=== PATIENT | female | born 1990 | race Caucasian/White ===

== ENCOUNTER 2019-03-05 11:52 | Emergency (ER) | payer OTHER ==
[2019-03-05 12:07] VITALS: RESP 18
[2019-03-05] MEDS ORDERED: SODIUM CHLORIDE 0.9% 1,000 ML IV STA ×2 (12:21)
[2019-03-05] MEDS ORDERED: diphenhydrAMINE 50 MG/ML 1 ML VIAL IVP STA (12:21)
[2019-03-05] MEDS ORDERED: ACETAMINOPHEN TAB 500 MG TAB PO STA (12:21)
[2019-03-05] MEDS ORDERED: SODIUM CHLORIDE 0.9% 500 ML 500 ML IV STA (12:21)
[2019-03-05] MEDS ORDERED: METOCLOPRAMIDE 5 MG/ML 2 ML VIAL IVP STA (12:21)
--- NOTE | 2019-03-05 12:23 | ED ---
Headache HPI - General Chief Complaint: Headache Stated Complaint: rt eye vision loss, headache Time Seen by Provider: 03/05/19 12:06 Source: RN notes reviewed, old records reviewed Mode of arrival: ambulatory Limitations: no limitations - History of Present Illness Initial Comments: This is a 21-year-old female the ER for evaluation. She presents today for evaluation regards to headache history of migraine migraine headache times one week. Patient is (about 10 weeks currently. She is nauseous with decreased appetite but no active vomiting. Denies any other complaints no fevers. Headache has persisted for about a week she has seen his spoke with her OB with no recommended continued treatment just increasing IV fluids and Tyle nol. Patient also currently complaining of some right sided eye twitching and occasional blurry vision which she occasionally gets with severe migraines. MD Complaint: headache, "migraine" (Patient also known to be ) -: week(s) Onset Description: gradual Location: right, left, frontal Severity: moderate Severity scale (1-10): 6 Quality: aching, throbbing, pulsatile, similar to previous headaches Consistency: constant Improves With: nothing Worsens With: none Associated Symptoms: nausea, photophobia, vision loss (No vision loss but she does have blurry vision right eye) Treatments Prior to Arrival: Acetaminophen - Related Data Home Medications Medication Instructions Recorded Confirmed Acetaminophen Tab [Tylenol Tab] 650 mg PO Q4H PRN 03/05/19 03/05/19 Pnv,Calcium 72/Iron/Folic Acid 1 tab PO DAILY 03/05/19 03/05/19 [ Plus Tablet] Allergies Allergy/AdvReac Type Severity Reaction Status Date / Time No Known Allergies Allergy Verified 03/05/19 12:41 Review of Systems ROS Statement: Those systems with pertinent positive or pertinent negative responses have been documented in the HPI. ROS Other: All systems not noted in ROS Statement are negative. Past Medical History Past Medical History: No Reported History History of Any Multi-Drug Resistant Organisms: None Reported Past Surgical History: No Surgical Hx Reported Past Psychological History: No Psychological Hx Reported Smoking Status: Never smoker Past Alcohol Use History: None Reported Past Drug Use History: None Reported General Exam - General Exam Comments Initial Comments: NIH is 0 No vision loss Loss noted on exam Limitations: no limitations General appearance: alert, in no apparent distress Head exam: Present: atraumatic, normocephalic, normal inspection Eye exam: Present: normal appearance, PERRL, EOMI. Absent: scleral icterus, conjunctival injection, nystagmus, periorbital swelling, periorbital tenderness Pupils: Present: normal accommodation. Absent: irregular, unequal, miosis, mydriatic ENT exam: Present: normal exam, mucous membranes moist Neck exam: Present: normal inspection. Absent: tenderness, meningismus, lymphadenopathy Respiratory exam: Present: normal lung sounds bilaterally. Absent: respiratory distress, wheezes, rales, rhonchi, stridor Cardiovascular Exam: Present: regular rate, normal rhythm, normal heart sounds. Absent: systolic murmur, diastolic murmur, rubs, gallop, clicks GI/Abdominal exam: Present: soft, normal bowel sounds. Absent: distended, tenderness, guarding, rebound, rigid Extremities exam: Present: normal inspection, full ROM, normal capillary refill. Absent: tenderness, pedal edema, joint swelling, calf tenderness Back exam: Present: normal inspection Neurological exam: Present: alert, oriented X3, CN II-XII intact Psychiatric exam: Present: normal affect, normal mood Skin exam: Present: warm, dry, intact, normal color. Absent: rash Course Vital Signs 03/05/19 12:05 Temperature 98.2 F Pulse Rate 91 Respiratory 18 Rate Blood Pressure 145/83 O2 Sat by Pulse 97 Oximetry - Reevaluation(s) Reevaluation #1: 03/05/19 13:56 Medical record reviewed Reevaluation #2: 03/05/19 13:56 Symptoms improved Reevaluation #3: 03/05/19 13:56 Patient's headache is improving patient is improving, blurry vision is improving Medical Decision Making - Medical Decision Making 29 female the ER with migraine headache. Patient resents today the ER with same. Headache times one week. Patient also having some twitching of right eye blurry vision that is improving, headache is improving here in the ER. Lab values are unremarkable for mild dehydration. Urine is negative. Patient can be discharged - Lab Data Result diagrams: 03/05/19 13:16 03/05/19 13:16 Lab Results 03/05/19 03/05/19 03/05/19 Range/Units 13:16 13:16 13:16 WBC 11.3 H (3.8-10.6) k/uL RBC 4.58 (3.80-5.40) m/uL Hgb 13.6 (11.4-16.0) gm/dL Hct 40.8 (34.0-46.0) % MCV 88.9 (80.0-100.0) fL MCH 29.8 (25.0-35.0) pg MCHC 33.5 (31.0-37.0) g/dL RDW 14.2 (11.5-15.5) % Plt Count 289 (150-450) k/uL Neutrophils % 73 % Lymphocytes % 23 % Monocytes % 3 % Eosinophils % 0 % Basophils % 0 % Neutrophils # 8.2 H (1.3-7.7) k/uL Lymphocytes # 2.6 (1.0-4.8) k/uL Monocytes # 0.4 (0-1.0) k/uL Eosinophils # 0.0 (0-0.7) k/uL Basophils # 0.0 (0-0.2) k/uL Sodium 136 L (137-145) mmol/L Potassium 3.9 (3.5-5.1) mmol/L Chloride 104 (98-107) mmol/L Carbon Dioxide 21 L (22-30) mmol/L Anion Gap 11 mmol/L BUN 7 (7-17) mg/dL Creatinine 0.40 L (0.52-1.04) mg/dL Est GFR (CKD-EPI)AfAm >90 (>60 ml/min/1.73 sqM) Est GFR (CKD-EPI)NonAf >90 (>60 ml/min/1.73 sqM) Glucose 87 (74-99) mg/dL Calcium 9.4 (8.4-10.2) mg/dL Phosphorus 3.4 (2.5-4.5) mg/dL Magnesium 2.1 (1.6-2.3) mg/dL Total Bilirubin 0.4 (0.2-1.3) mg/dL AST 16 (14-36) U/L ALT 18 (9-52) U/L Alkaline Phosphatase 49 (38-126) U/L Total Protein 7.0 (6.3-8.2) g/dL Albumin 4.2 (3.5-5.0) g/dL Urine Color Yellow Urine Appearance Clear (Clear) Urine pH 7.0 (5.0-8.0) Ur Specific [place] 1.012 (1.001-1.035) Urine Protein Negative (Negative) Urine Glucose (UA) Negative (Negative) Urine Blood Trace H (Negative) Urine Nitrite Negative (Negative) Urine Bilirubin Negative (Negative) Urine Urobilinogen <2.0 (<2.0) mg/dL Ur Leukocyte Esterase Large H (Negative) Urine RBC 2 (0-5) /hpf Urine WBC 2 (0-5) /hpf Ur Squamous Epith Cells 2 (0-4) /hpf Urine Bacteria Rare H (None) /hpf Urine Mucus Rare H (None) /hpf Disposition Clinical Impression: Migraine, Headache, Disposition: HOME SELF-CARE Condition: Good Instructions (If sedation given, give patient instructions): Acute Headache (ED) Is patient prescribed a controlled substance at d/c from ED?: No Referrals: None,Stated [Primary Care Provider] - 1-2 days
[2019-03-05 13:44] LABS: Basophils % (A) 0 %; Eosinophils % (A) 0 %; HCT 40.8 % (34.0-46.0); HGB 13.6 gm/dL (11.4-16.0); Lymphocytes # (A) 2.6 k/uL (1.0-4.8); Lymphocytes % (A) 23 %; MCH 29.8 pg (25.0-35.0); MCHC 33.5 g/dL (31.0-37.0); MCV 88.9 fL (80.0-100.0); Mean Platelet Volume 6.9; Monocytes # (A) 0.4 k/uL (0-1.0); Monocytes % (A) 3 %; Neutrophils # (A) 8.2 k/uL (1.3-7.7); Neutrophils % (A) 73 %; Platelet Count 289 k/uL (150-450); RBC 4.58 m/uL (3.80-5.40); RDW 14.2 % (11.5-15.5); WBC 11.3 k/uL (3.8-10.6)
[2019-03-05 13:52] LABS: ALT 18 U/L (9-52); AST 16 U/L (14-36); African American GFR (CKD) >90 (>60 ml/min/1.73 sqM); Albumin 4.2 g/dL (3.5-5.0); Alkaline Phosphatase 49 U/L (38-126); Anion Gap 11 mmol/L; Blood Urea Nitrogen 7 mg/dL (7-17); Calcium 9.4 mg/dL (8.4-10.2); Carbon Dioxide 21 mmol/L (22-30); Chloride 104 mmol/L (98-107); Glucose 87 mg/dL (74-99); Magnesium 2.1 mg/dL (1.6-2.3); Phosphorus 3.4 mg/dL (2.5-4.5); Potassium 3.9 mmol/L (3.5-5.1); Sodium 136 mmol/L (137-145); Total Bilirubin 0.4 mg/dL (0.2-1.3)
[2019-03-05 13:53] LABS: Appearance,Urine Clear (Clear); Bacteria,Urine Rare /hpf; Bilirubin,Urine Negative (Negative); Blood,Urine Trace (Negative); Color,Urine Yellow; Glucose,Urine (UA) Negative (Negative); Ketones,Urine 2+ (Negative); Leukocyte Esterase,Urine Large (Negative); Mucus,Urine Rare /hpf; Nitrite,Urine Negative (Negative); Protein,Urine Negative (Negative); RBC,Urine 2 /hpf (0-5); Specific Gravity,Urine 1.012 (1.001-1.035); Squamous Epithelial Cell,Urine 2 /hpf (0-4); Urobilinogen,Urine <2.0 mg/dL (<2.0); WBC,Urine 2 /hpf (0-5)
[2019-03-05 14:23] VITALS: BP 115/59; PULSE 71; TEMP 97.9
== END 2019-03-05 14:23 | disposition home or self-care (01) ==
LOC: EC 11:52
DX: O99.89 Other specified diseases and conditions complicating pregnancy, childbirth and the puerperium (principal); G43.909 Migraine, unspecified, not intractable, without status migrainosus; H57.89 Other specified disorders of eye and adnexa; Z79.899 Other long term (current) drug therapy; Z3A.10 10 weeks gestation of pregnancy
CPT/HCPCS: 36415; 80053; 83735; 84100; 85025; 81001; 87086; 99284; 96365; 96375 ×2; J1200; J2765; J2930

== ENCOUNTER 2019-07-15 14:35 | Outpatient (CLI) | payer OTHER ==
[2019-07-15 15:59] VITALS: BP 120/71; PULSE 96; RESP 18; TEMP 97.8
--- NOTE | 2019-07-16 07:41 | P.MSEPDOC ---
Presenting Problems - Arrival Data Date of Arrival on Unit: 07/15/19 Time of Arrival on Unit: 14:35 Mode of Transport: Ambulatory - Complaint OB-Reason for Admission/Chief Complaint: Rule Out SROM Medical History - Information : 2 Para: 1 Term: 1 : 0 Abortions: Spontaneous or Elective: 0 Number of Living Children: 1 - Gestational Age Gestational Age by ZULAY (wks/days): 29 Weeks and 1 Days Review of Systems - Review of Systems Constitutional: No problems Breast: No problems ENT: No problems Cardiovascular: No problems Respiratory: No problems Gastrointestinal: No problems Genitourinary: No problems Musculoskeletal: No problems Neurological: No problems Skin: No problems Vital Signs - Temperature Temperature: 97.8 F Temperature Source: Oral - Pulse Right Sitting Brachial Pulse Rate: 96 Pulse Assessment Method: Automatic Cuff - Respirations Respiratory Rate: 18 Oxygen Delivery Method: Room Air O2 Sat by Pulse Oximetry: 100 - Blood Pressure Right Arm Sitting Blood Pressure: 120/71 Blood Pressure Mean: 87 Blood Pressure Source: Automatic Cuff Medical Screen Scoring (Pre) - Cervical Exam Dilation: 0 cm = 0 Membranes: Intact - Uterine Contractions Frequency: N/A Duration: N/A Intensity: N/A - Maternal Vital Signs Maternal Temperature: N/A Maternal Blood Pressure: N/A Signs of Preeclampsia: N/A Maternal Respirations: N/A - Maternal Trauma Maternal Trauma: N/A - Assessment - Baby A Baseline FHR: 135 Heart Rate - NICHD Category: Category I (Normal) = 0 NST: Reactive Position: N/A Station: N/A - Total Score - Baby A Total Score - Baby A: 0 - Total Score - Baby B Total Score - Baby B: 0 - Total Score - Baby C Total Score - Baby C: 0 - Level of Risk - Baby A Level of Risk - Baby A: Low (0-5) - Level of Risk - Baby B Level of Risk - Baby B: Low (0-5) - Level of Risk - Baby C Level of Risk - Baby C: Low (0-5) - Pain Assessment Pain Scale Used: Numeric (1 - 10) Pain Intensity: 0 Pain Management Goal: 3 Physician Notification (Pre) - Physician Notified Physician Notified Date: 07/15/19 Physician Notified Time: 15:45 New Order Received: Yes - Notification Comment Comment: amnisure neg. cx closed/thick. dc home. follow up in the office 07/22/2019 Disposition - Disposition OB Disposition: Physician follow up in office, Discharge to home Discharge Date: 07/15/19 Discharge Time: 15:59 I agree with the RN Medical Screening Exam: Yes Risk & Benefit of care provided described in d/c instruction: Yes Diagnosis: FALSE LABOR BEFORE 37 COMPLETED WEEKS OF GEST, THIRD TRI
== END 2019-07-15 16:00 | disposition home or self-care (01) ==
LOC: FBPOP 14:35
PROVIDERS: ATTEND Obstetrics & Gynecology
DX: O47.03 False labor before 37 completed weeks of gestation, third trimester (principal); Z3A.29 29 weeks gestation of pregnancy
CPT/HCPCS: 59025; 84112; 99213

== ENCOUNTER 2019-09-17 22:18 | Inpatient (IN) | payer OTHER ==
[2019-09-17] MEDS ORDERED: TERBUTALINE 1 MG/ML VIAL SQ PRN (22:43)
[2019-09-17] MEDS ORDERED: LIDOCAINE 0.5% (PF) 5 MG/ML (50 ML SDV) SQ PRN (22:43)
[2019-09-17] MEDS ORDERED: OXYTOCIN 10 UNIT/ML 1 ML VIAL IM PRN (22:43)
[2019-09-17] MEDS ORDERED: METHYLERGONOVINE 0.2 MG/ML 1 ML AMP IM PRN (22:43)
[2019-09-17] MEDS ORDERED: CARBOPROST TROMETHAMINE 250 MCG/ML 1 ML AMP IM PRN (22:43)
[2019-09-17] MEDS ORDERED: LACTATED RINGERS 1,000 ML IV SCH (22:45)
[2019-09-17 23:00] LABS: Basophils % (A) 0 %; Eosinophils # (A) 0.1 k/uL (0-0.7); Eosinophils % (A) 1 %; HGB 12.7 gm/dL (11.4-16.0); Lymphocytes # (A) 3.4 k/uL (1.0-4.8); Lymphocytes % (A) 31 %; MCH 26.8 pg (25.0-35.0); MCHC 32.6 g/dL (31.0-37.0); MCV 82.1 fL (80.0-100.0); Mean Platelet Volume 7.7; Monocytes # (A) 0.7 k/uL (0-1.0); Monocytes % (A) 6 %; Neutrophils # (A) 6.4 k/uL (1.3-7.7); Neutrophils % (A) 59 %; Platelet Count 254 k/uL (150-450); RBC 4.75 m/uL (3.80-5.40); RDW 15.1 % (11.5-15.5); WBC 10.8 k/uL (3.8-10.6)
--- NOTE | 2019-09-17 23:44 | P.HPOB ---
History of Present Illness H&P Date: 09/17/19 Chief Complaint: Strong regular uterine contractions This is a 29-year-old white female 2 para 1001 EDC 09/29/2019 38-2/7 weeks' gestation. Patient presented with strong regular uterine contractions from home, judged to be in active spontaneous labor. Fetus is been active throughout the . She denies fluid leakage or vaginal bleeding. history significant for blood type A positive, rubella status immune. Group B strep cultures, VDRL testing, HIV testing, hepatitis B surface antigen, urine culture all negative. One-hour Glucola elevated, 3 hour GTT within normal limits. Past medical history is significant for migraine headaches, improved with chiropractic adjustments. Past surgical history wisdom teeth extracted. Current medications vitamin daily. Magnesium 200 mg orally daily. ALLERGIES none known. Family history significant for diabetes. Obstetric history vaginal delivery in 2016 of male infant, 6 lbs. 7 oz. On exam patient is 5 foot 4 inches, approximate 225 pounds, blood pressure 128/75 on admission, vital signs otherwise stable. The general physical exam is within normal limits. Cervix on admission is 7 cm dilated, 90% effaced, -2 station, vertex presentation. heart rate is consistent with reactive NST. Impression: 38-2/7 weeks intrauterine , active spontaneous labor, all signs reassuring. Plan: Patient is requesting epidural but we are awaiting lab results. Stadol has been offered intravenously. Continue close maternal and surveillance. Anticipate normal spontaneous vaginal delivery. Review of Systems Constitutional: Reports as per HPI Past Medical History Past Medical History: No Reported History History of Any Multi-Drug Resistant Organisms: None Reported Past Surgical History: No Surgical Hx Reported Past Anesthesia/Blood Transfusion Reactions: No Reported Reaction Past Psychological History: No Psychological Hx Reported Smoking Status: Never smoker Past Alcohol Use History: None Reported Past Drug Use History: None Reported - Past Family History Father Family Medical History: No Reported History Medications and Allergies Home Medications Medication Instructions Recorded Confirmed Type Pnv,Calcium 72/Iron/Folic Acid 1 tab PO DAILY 03/05/19 09/17/19 History [ Plus Tablet] Acetaminophen Tab [Tylenol] 650 mg PO Q4H 09/17/19 09/17/19 History Allergies Allergy/AdvReac Type Severity Reaction Status Date / Time No Known Allergies Allergy Verified 03/12/20 22:22 Exam Vital Signs Temp Pulse Resp BP Pulse Ox 09/17/19 22:51 97.6 F 78 20 128/75 97 Intake and Output 09/17/19 09/17/19 09/18/19 14:59 22:59 06:59 Other: Weight 102.058 kg See dictation HPI please Results Result Diagrams: 09/17/19 22:46 Abnormal Lab Results - Last 24 Hours (Table) 09/17/19 Range/Units 22:46 WBC 10.8 H (3.8-10.6) k/uL Assessment and Plan Assessment: 38-2/7 weeks intrauterine , active spontaneous labor. Plan: Continue close maternal and surveillance. Anticipate normal spontaneous vaginal delivery. Time with Patient: Less than 30
[2019-09-17] MEDS ORDERED: OXYTOCIN 20 UNITS/1000 ML NS 1,000 ML IV SCH (23:45)
[2019-09-17] MEDS ORDERED: BENZOCAINE/MENTHOL SPRAY 1 GM/SPRAY AEROSOL TOPICAL PRN (23:47)
[2019-09-17] MEDS ORDERED: diphenhydrAMINE 50 MG CAP PO PRN (23:47)
[2019-09-17] MEDS ORDERED: HYDROCORTISONE 2.5% RECTAL CREAM 30 GM TUBE RECTAL PRN (23:47)
[2019-09-17] MEDS ORDERED: diphenhydrAMINE 50 MG/ML 1 ML VIAL IVP PRN ×2 (23:47)
[2019-09-17] MEDS ORDERED: ZOLPIDEM 5 MG TAB PO PRN (23:47)
[2019-09-17] MEDS ORDERED: LANOLIN CREAM 5 GM TUBE TOPICAL PRN (23:47)
[2019-09-17] MEDS ORDERED: WITCH HAZEL 1 EACH MED..PAD TOPICAL PRN (23:47)
[2019-09-17] MEDS ORDERED: diphenhydrAMINE ELIXIR 25 MG/10 ML CUP PO PRN (23:47)
[2019-09-17] MEDS ORDERED: diphenhydrAMINE 25 MG CAP PO PRN (23:47)
[2019-09-17] MEDS ORDERED: ACETAMINOPHEN TAB 325 MG TAB PO PRN (23:47)
[2019-09-17] MEDS ORDERED: SIMETHICONE 80 MG CHEWABLE PO PRN (23:47)
--- NOTE | 2019-09-17 23:47 | P.PROBDLV ---
Vaginal Delivery Note - . Vaginal Delivery Note: This is a 29-year-old white female 2 para 1001 EDC 09/29/2019 at 38-2/7 weeks' gestation. Patient presented in active spontaneous labor, cervix was 7 cm dilated on admission. Group B strep cultures negative, blood type A positive, rubella status immune. Please see dictated history and physical for details. heart rate was reassuring. Artificial amniorrhexis revealed clear fluid. Patient very quickly became completely dilated and began the second stage of labor at that time. Perineal body was prepped and draped in usual sterile fashion. With excellent maternal expulsive efforts the head delivered occiput anterior and the baby restituted accordingly. There was no nuchal cord noted. The left or anterior shoulder was easily delivered from underneath the pubic symphysis at which time the oropharynx, nasopharynx, and external nares were bulb suctioned on the perineal body. Patient was officially delivered of a liveborn female infant at 2321 hours. Umbilical cord was doubly clamped and ligated, she was handed to waiting nurses for evaluation where scores of 9 and 10 at one and 5 minutes respectively were given. Placenta delivered spontaneously, it was inspected and noted to be intact with trivascular cord at 2324 hrs. Uterus is massaged. Inspection of the cervix, vagina, perineum, periurethral, and perirectal areas revealed a very small first-degree midline perineal laceration repaired with a single [id number] suture of PE didn't. All sponge needle and enhancement counts are correct at the end of the procedure. Estimated blood loss 250 mL's. Patient and her family are allowed to begin the bonding experience in the LDR.
[2019-09-18] MEDS: IBUPROFEN 600 MG TAB PO PRN ×3 (00:17→16:38)
[2019-09-18] MEDS: SENNOSIDES-DOCUSATE SODIUM 1 EACH TAB PO SCH ×2 (07:34→19:48)
--- NOTE | 2019-09-18 11:25 | P.PN ---
Subjective Progress Note Date: 09/18/19 Principal diagnosis: day #1 Slept well, minimal lochia rubra, no pain, no complaints. Objective - Vital Signs Vital signs: Vital Signs Temp 97.8 F 09/18/19 07:44 Pulse 65 09/18/19 07:44 Resp 18 09/18/19 07:44 BP 96/54 09/18/19 07:44 Pulse Ox 98 09/18/19 07:44 Intake & Output 09/17/19 09/18/19 09/18/19 18:59 06:59 18:59 Output Total 250 Balance -250 Weight 102.058 kg Output: Estimated Blood Loss 250 Other: # Voids 1 1 # Bowel Movements 0 - Constitutional General appearance: Present: average body habitus, cooperative - EENT Eyes: Present: PERRLA ENT: Present: hearing grossly normal - Respiratory Respiratory: bilateral: CTA - Cardiovascular Rhythm: regular - Gastrointestinal Gastrointestinal Comment(s): Fundus firm, midline, symmetric, 18 week size. - Integumentary Integumentary: Present: normal turgor - Neurologic Neurologic: Present: CNII-XII intact - Musculoskeletal Musculoskeletal: Present: gait normal, strength equal bilaterally - Psychiatric Psychiatric: Present: A&O x's 3, appropriate affect, intact judgment & insight - Labs CBC & Chem 7: 09/17/19 22:46 Labs: Abnormal Lab Results - Last 24 Hours (Table) 09/17/19 Range/Units 22:46 WBC 10.8 H (3.8-10.6) k/uL Assessment and Plan Assessment: Doing very well day #1 Plan: Likely discharge home tomorrow. Continue care. Patient will follow- up with me in 6 weeks. Time with Patient: Less than 30
[2019-09-19 00:38] VITALS: RESP 18
[2019-09-19] MEDS: IBUPROFEN 600 MG TAB PO PRN (08:18)
[2019-09-19] MEDS: SENNOSIDES-DOCUSATE SODIUM 1 EACH TAB PO SCH (08:19)
[2019-09-19 09:45] VITALS: BP 124/84; PULSE 66; TEMP 97.8
--- NOTE | 2019-09-19 09:48 | P.DS ---
Providers Date of admission: 09/17/19 22:38 Expected date of discharge: 09/19/19 Attending physician: Natividad Barnett Primary care physician: Stated None - Discharge Diagnosis(es) (1) Term Current Visit: Yes Status: Acute (2) Spontaneous onset of labor Current Visit: Yes Status: Acute (3) Small for gestational age (SGA) Current Visit: Yes Status: Acute (4) Normal spontaneous vaginal delivery Current Visit: Yes Status: Acute (5) Perineal laceration with delivery, first degree Current Visit: Yes Status: Acute Hospital Course: This is a 29-year-old 2 now para 2 woman who presented at 38-2/7 weeks' gestation in advanced active labor. She was a admitted and underwent artificial rupture of membranes. She had a rapid progression to complete cervical dilation. She delivered a liveborn female over a first-degree perineal laceration. Apgars 9 at 1 minute and 10 at 5 minutes. Please see the delivery summary for details. Her course was unremarkable. On day #1 she was ambulating and voiding without difficulty, tolerating a general diet and her lochia was decreasing. By day #2 she continued to do quite well with minimal lochia, no perineal or abdominal pain. Her vital signs are stable. She was therefore discharged home with routine instructions for care and follow-up Patient Condition at Discharge: Good Plan - Discharge Summary New Discharge Prescriptions: No Action Pnv,Calcium 72/Iron/Folic Acid [ Plus Tablet] 1 tab PO DAILY Acetaminophen Tab [Tylenol] 650 mg PO Q4H Discharge Medication List Pnv,Calcium 72/Iron/Folic Acid [ Plus Tablet] 1 tab PO DAILY 03/05/19 [History] Acetaminophen Tab [Tylenol] 650 mg PO Q4H 09/17/19 [History] Follow up Appointment(s)/Referral(s): Natividad Barnett MD [STAFF PHYSICIAN] - 6 Weeks Activity/Diet/Wound Care/Special Instructions: Follow-up in the office in 6 weeks . Call with any concerning signs or symptoms including heavy vaginal bleeding, severe abdominal pain, fever greater than 101, swelling or redness of the lower extremities, foul vaginal discharge, or signs of depression. Nothing in the vagina for 6 weeks after delivery, specifically no intercourse. Discharge Disposition: HOME SELF-CARE
== END 2019-09-19 12:17 | disposition home or self-care (01) | DRG 807 ==
LOC: FBPOP 22:18 → 4FBP 22:38
PROVIDERS: ADMIT Obstetrics & Gynecology; ATTEND Obstetrics & Gynecology
PROC: 10907ZC Drainage of Amniotic Fluid, Therapeutic from Products of Conception, Via Natural or Artificial Opening (ICD-10-PCS; principal; 2019-09-17)
PROC: 10E0XZZ Delivery of Products of Conception, External Approach (ICD-10-PCS; principal; 2019-09-17)
PROC: 0HQ9XZZ Repair Perineum Skin, External Approach (ICD-10-PCS; principal; 2019-09-17)
DX: O36.5930 Maternal care for other known or suspected poor fetal growth, third trimester, not applicable or unspecified (principal); Z37.0 Single live birth; O70.0 First degree perineal laceration during delivery; Z3A.38 38 weeks gestation of pregnancy; Z83.3 Family history of diabetes mellitus
CPT/HCPCS: 85025; 86850; 86900; 86901; 99213

== ENCOUNTER → 2024-09-23 | Outpatient (CLI) | payer BC ==
[2024-09-23 15:55] LABS: Basophils # (A) 0.08 X 10*3/uL (0.00-0.10); Basophils % (A) 1.2 %; Eosinophils # (A) 0.03 X 10*3/uL (0.04-0.35); Eosinophils % (A) 0.5 %; HCT 40.2 % (37.2-46.3); HGB 13.1 g/dL (12.0-15.0); Lymphocytes # (A) 2.77 X 10*3/uL (0.90-5.00); Lymphocytes % (A) 42.4 %; MCH 28.2 pg (27.0-32.0); MCHC 32.6 g/dL (32.0-37.0); MCV 86.5 FL (80.0-97.0); Mean Platelet Volume 10.3 FL (9.5-12.2); Monocytes # (A) 0.53 X 10*3/uL (0.20-1.00); Monocytes % (A) 8.1 %; NRBC Per 100 WBC 0 X 10*3/uL (0.00-0.01); Neutrophils # (A) 3.11 X 10*3/uL (1.80-7.70); Neutrophils % (A) 47.6 %; Platelet Count 323 X 10*3/uL (140-440); RBC 4.65 X 10*6/uL (4.10-5.20); RDW 13.9 % (11.5-14.5); WBC 6.53 X 10*3/uL (4.50-10.00)
[2024-09-23 16:11] LABS: Chol/HDL Ratio 3.21 Ratio; LDL Cholesterol,Calculated 114.5 mg/dL (0.0-131.0); VLDL Calculation 9.42 mg/dL (5.00-40.00)
[2024-09-23 16:12] LABS: ALT 21 U/L (8-44); AST 18 U/L (13-35); Albumin 4.8 g/dL (3.8-4.9); Alkaline Phosphatase 70 U/L (41-126); BUN/Creat Ratio 15.12 Ratio (12.00-20.00); Blood Urea Nitrogen 12.1 mg/dL (9.0-27.0); Calcium 9.4 mg/dL (8.7-10.3); Carbon Dioxide 21.9 mmol/L (21.6-31.8); Chloride 102 mmol/L (96-109); Globulin 2.4 g/dL (1.6-3.3); Glucose 92 mg/dL (70-110); Potassium 4.2 mmol/L (3.5-5.5); Sodium 137 mmol/L (135-145); Total Bilirubin 0.5 mg/dL (0.3-1.2); Total Protein 7.2 g/dL (6.2-8.2)
== END | disposition home or self-care (01) ==
LOC: LABWHC1 08:41
PROVIDERS: ATTEND Internal Medicine
DX: Z51.81 Encounter for therapeutic drug level monitoring (principal); Z13.1 Encounter for screening for diabetes mellitus; Z13.220 Encounter for screening for lipoid disorders; E55.9 Vitamin D deficiency, unspecified
CPT/HCPCS: 36415; 80053; 80061; 82306; 83036; 84443; 85025